=== PATIENT | male | born 1960 | race African-American/Black ===

== ENCOUNTER 2021-05-24 15:41 | Inpatient (IN) | payer OTHER ==
[2021-05-24 17:03] VITALS: BMI 24.4
[2021-05-24] MEDS ORDERED: guaiFENesin 200 MG/10 ML 10 ML UNIT-DOSE CUPS PO PRN (20:52)
[2021-05-24] MEDS ORDERED: MAGNESIUM HYDROX 2400MG/30ML ORAL SUSPENSION 30 ML CUP PO PRN (20:52)
[2021-05-24] MEDS ORDERED: MAGNESIUM CITRATE 300 ML BOTTLE PO PRN (20:52)
[2021-05-24] MEDS ORDERED: LOPERAMIDE HCL 2 MG CAPSULE PO PRN (20:52)
[2021-05-24] MEDS ORDERED: IBUPROFEN 400 MG TABLET (FP) PO PRN (20:52)
[2021-05-24] MEDS ORDERED: P-EPHED 60MG/TRIPROLIDI 2.5MG TABLET PO PRN (20:52)
[2021-05-24] MEDS ORDERED: TUBERCULIN PPD 5 TU/0.1ML VIAL ID ONE (21:54)
[2021-05-24] MEDS: THIAMINE HCL 100 MG TABLET (FP) PO SCH (21:58)
[2021-05-24] MEDS: MELATONIN 5 MG TABLETS PO SCH (21:59)
[2021-05-24] MEDS: hydrOXYzine PAMOATE 25 MG CAPSULE (FP) PO SCH (21:59)
[2021-05-24] MEDS: MAG HYDROX/AL HYDROX/SIMETH 30 ML UNIT-DOSE CUP PO PRN (22:29)
[2021-05-25] MEDS: hydrOXYzine PAMOATE 25 MG CAPSULE (FP) PO SCH ×5 (06:44→21:26)
[2021-05-25] MEDS: PRENATAL VITAMINS W/ FOLIC ACID TABLET (FP) PO SCH (10:04)
[2021-05-25] MEDS: ACETAMINOPHEN 325 MG TABLET (FP) PO PRN (10:06)
[2021-05-25] MEDS: MAG HYDROX/AL HYDROX/SIMETH 30 ML UNIT-DOSE CUP PO PRN (10:08)
[2021-05-25 10:12] LABS: HEMATOCRIT 38.2 % (35.4-49); HEMOGLOBIN 12.9 GM/dL (11.7-16.9); MCH 31.4 pg (25.7-33.7); MCHC 33.7 g/dl (32.0-35.9); MEAN CELL VOLUME 93.3 fl (80-96); MEAN PLT VOLUME 9.3 fl (7.5-11.1); PLATELET COUNT 163 10^3/uL (134-434); RBC 4.09 M/mm3 (4.00-5.60); RDW 14.9 % (11.9-15.9); WHITE BLOOD COUNT 6.2 K/mm3 (4.0-10.0)
[2021-05-25 10:46] LABS: ALBUMIN 3.3 g/dl (3.4-5.0); BLOOD UREA NITROGEN 17.5 mg/dL (7-18); CALCIUM 8.5 mg/dL (8.5-10.1)
[2021-05-25 10:51] LABS: TOT PROT 6.5 g/dl (6.4-8.2)
[2021-05-25 10:54] LABS: BILIRUBIN,TOTAL 0.4 mg/dL (0.2-1)
[2021-05-25 11:16] LABS: SYPHILIS W/ RPR CONF NON-REACTIVE (NONREACTIVE)
[2021-05-25] MEDS ORDERED: FLU VACC QS2021-22(6MOS UP)/PF 60 MCG/0.5 ML SYRINGE IM ONE (13:00)
[2021-05-25 13:29] LABS: HIV INTERPRETATION NEGATIVE (NEGATIVE)
[2021-05-25] MEDS ORDERED: FAMOTIDINE 20 MG TABLET PO ONE (17:07)
[2021-05-25] MEDS: LISINOPRIL 10 MG TABLET PO SCH (18:14)
[2021-05-25] MEDS: NICOTINE 10 MG CARTRIDGE (INHALER) IH SCH (21:25)
[2021-05-25] MEDS: CARVEDILOL 6.25 MG TABLET (FP) PO SCH (21:25)
[2021-05-25] MEDS: THIAMINE HCL 100 MG TABLET (FP) PO SCH (21:25)
[2021-05-25] MEDS: APIXABAN 5 MG TABLET PO SCH (21:25)
[2021-05-25] MEDS: ATORVASTATIN CA 10 MG TABLET (FP) PO SCH (21:26)
[2021-05-25] MEDS: MELATONIN 5 MG TABLETS PO SCH (21:26)
[2021-05-25] MEDS: TOPIRAMATE 100 MG TABLET PO SCH (22:10)
[2021-05-26] MEDS: hydrOXYzine PAMOATE 25 MG CAPSULE (FP) PO SCH ×6 (06:30→21:05)
[2021-05-26] MEDS: APIXABAN 5 MG TABLET PO SCH ×2 (10:13→21:04)
[2021-05-26] MEDS: amLODIPine BESYLATE 10 MG TABLET (FP) PO SCH (10:13)
[2021-05-26] MEDS: LISINOPRIL 10 MG TABLET PO SCH (10:13)
[2021-05-26] MEDS: FAMOTIDINE 20 MG TABLET PO SCH (10:13)
[2021-05-26] MEDS: PRENATAL VITAMINS W/ FOLIC ACID TABLET (FP) PO SCH (10:13)
[2021-05-26] MEDS: CARVEDILOL 6.25 MG TABLET (FP) PO SCH ×2 (10:13→21:04)
[2021-05-26] MEDS: NICOTINE 10 MG CARTRIDGE (INHALER) IH SCH (10:14)
[2021-05-26] MEDS: TOPIRAMATE 100 MG TABLET PO SCH ×2 (11:14→21:03)
[2021-05-26] MEDS: ATORVASTATIN CA 10 MG TABLET (FP) PO SCH (21:04)
[2021-05-26] MEDS: MELATONIN 5 MG TABLETS PO SCH (21:04)
[2021-05-26] MEDS: THIAMINE HCL 100 MG TABLET (FP) PO SCH (21:04)
[2021-05-26] MEDS: MAG HYDROX/AL HYDROX/SIMETH 30 ML UNIT-DOSE CUP PO PRN (22:25)
[2021-05-27] MEDS: hydrOXYzine PAMOATE 25 MG CAPSULE (FP) PO SCH ×5 (06:46→21:19)
[2021-05-27] MEDS: FAMOTIDINE 20 MG TABLET PO SCH (09:10)
[2021-05-27] MEDS: PRENATAL VITAMINS W/ FOLIC ACID TABLET (FP) PO SCH (09:10)
[2021-05-27] MEDS: TOPIRAMATE 100 MG TABLET PO SCH ×2 (09:10→21:19)
[2021-05-27] MEDS: amLODIPine BESYLATE 10 MG TABLET (FP) PO SCH (09:10)
[2021-05-27] MEDS: APIXABAN 5 MG TABLET PO SCH ×2 (09:10→21:19)
[2021-05-27] MEDS: LISINOPRIL 10 MG TABLET PO SCH (09:10)
[2021-05-27] MEDS: NICOTINE 10 MG CARTRIDGE (INHALER) IH SCH (09:10)
[2021-05-27] MEDS: CARVEDILOL 6.25 MG TABLET (FP) PO SCH ×2 (09:10→21:19)
[2021-05-27] MEDS: MAG HYDROX/AL HYDROX/SIMETH 30 ML UNIT-DOSE CUP PO PRN ×2 (10:16→23:40)
[2021-05-27] MEDS: ACETAMINOPHEN 325 MG TABLET (FP) PO PRN (13:38)
[2021-05-27] MEDS: ATORVASTATIN CA 10 MG TABLET (FP) PO SCH (21:19)
[2021-05-27] MEDS: MELATONIN 5 MG TABLETS PO SCH (21:19)
[2021-05-27] MEDS: THIAMINE HCL 100 MG TABLET (FP) PO SCH (21:19)
[2021-05-28] MEDS: hydrOXYzine PAMOATE 25 MG CAPSULE (FP) PO SCH ×5 (06:37→21:05)
[2021-05-28] MEDS: FAMOTIDINE 20 MG TABLET PO SCH (10:01)
[2021-05-28] MEDS: amLODIPine BESYLATE 10 MG TABLET (FP) PO SCH (10:01)
[2021-05-28] MEDS: LISINOPRIL 10 MG TABLET PO SCH (10:01)
[2021-05-28] MEDS: TOPIRAMATE 100 MG TABLET PO SCH ×2 (10:01→21:04)
[2021-05-28] MEDS: PRENATAL VITAMINS W/ FOLIC ACID TABLET (FP) PO SCH (10:01)
[2021-05-28] MEDS: CARVEDILOL 6.25 MG TABLET (FP) PO SCH ×2 (10:01→21:04)
[2021-05-28] MEDS: APIXABAN 5 MG TABLET PO SCH ×2 (10:01→21:04)
[2021-05-28] MEDS: NICOTINE 10 MG CARTRIDGE (INHALER) IH SCH (10:01)
[2021-05-28] MEDS: MAG HYDROX/AL HYDROX/SIMETH 30 ML UNIT-DOSE CUP PO PRN ×2 (17:05→23:40)
[2021-05-28] MEDS ORDERED: PT OWN MED DRAWER 7, Y5N ONE (18:38)
[2021-05-28] MEDS: ATORVASTATIN CA 10 MG TABLET (FP) PO SCH (21:04)
[2021-05-28] MEDS: MELATONIN 5 MG TABLETS PO SCH (21:04)
[2021-05-28] MEDS: THIAMINE HCL 100 MG TABLET (FP) PO SCH (21:04)
[2021-05-29] MEDS: hydrOXYzine PAMOATE 25 MG CAPSULE (FP) PO SCH ×5 (06:48→21:02)
[2021-05-29] MEDS: MAG HYDROX/AL HYDROX/SIMETH 30 ML UNIT-DOSE CUP PO PRN ×2 (09:46→19:09)
[2021-05-29] MEDS: APIXABAN 5 MG TABLET PO SCH ×2 (10:23→21:01)
[2021-05-29] MEDS: PRENATAL VITAMINS W/ FOLIC ACID TABLET (FP) PO SCH (10:23)
[2021-05-29] MEDS: CARVEDILOL 6.25 MG TABLET (FP) PO SCH ×2 (10:23→21:00)
[2021-05-29] MEDS: FAMOTIDINE 20 MG TABLET PO SCH (10:23)
[2021-05-29] MEDS: TOPIRAMATE 100 MG TABLET PO SCH ×2 (10:24→22:11)
[2021-05-29] MEDS: NICOTINE 10 MG CARTRIDGE (INHALER) IH SCH (10:24)
[2021-05-29] MEDS: THIAMINE HCL 100 MG TABLET (FP) PO SCH (21:01)
[2021-05-29] MEDS: ATORVASTATIN CA 10 MG TABLET (FP) PO SCH (21:01)
[2021-05-29] MEDS: MELATONIN 5 MG TABLETS PO SCH (21:01)
[2021-05-29] MEDS: ACETAMINOPHEN 325 MG TABLET (FP) PO PRN (21:02)
[2021-05-30] MEDS: hydrOXYzine PAMOATE 25 MG CAPSULE (FP) PO SCH ×5 (06:46→21:05)
[2021-05-30] MEDS: LISINOPRIL 10 MG TABLET PO SCH ×2 (06:46→06:47)
[2021-05-30] MEDS: amLODIPine BESYLATE 10 MG TABLET (FP) PO SCH (06:46)
[2021-05-30] MEDS: PRENATAL VITAMINS W/ FOLIC ACID TABLET (FP) PO SCH (10:11)
[2021-05-30] MEDS: TOPIRAMATE 100 MG TABLET PO SCH ×2 (10:11→21:04)
[2021-05-30] MEDS: APIXABAN 5 MG TABLET PO SCH ×2 (10:11→21:04)
[2021-05-30] MEDS: FAMOTIDINE 20 MG TABLET PO SCH ×3 (10:11→21:04)
[2021-05-30] MEDS: CARVEDILOL 6.25 MG TABLET (FP) PO SCH ×2 (10:12→21:04)
[2021-05-30] MEDS: NICOTINE 10 MG CARTRIDGE (INHALER) IH SCH (10:12)
[2021-05-30] MEDS: ACETAMINOPHEN 325 MG TABLET (FP) PO PRN ×2 (13:25→19:03)
[2021-05-30] MEDS ORDERED: PANTOPRAZOLE 20 MG TABLET PO ONE (16:08)
[2021-05-30] MEDS: ATORVASTATIN CA 10 MG TABLET (FP) PO SCH (21:04)
[2021-05-30] MEDS: THIAMINE HCL 100 MG TABLET (FP) PO SCH (21:05)
[2021-05-30] MEDS: MELATONIN 5 MG TABLETS PO SCH (21:05)
[2021-05-30] MEDS: TOLNAFTATE 1% CREAM 15 GM TUBE TP SCH (21:26)
[2021-05-31] MEDS: hydrOXYzine PAMOATE 25 MG CAPSULE (FP) PO SCH (07:12)
[2021-05-31] MEDS: LISINOPRIL 10 MG TABLET PO SCH (07:12)
[2021-05-31] MEDS: amLODIPine BESYLATE 10 MG TABLET (FP) PO SCH (07:12)
[2021-05-31] MEDS: APIXABAN 5 MG TABLET PO SCH ×2 (10:40→21:18)
[2021-05-31] MEDS: TOPIRAMATE 100 MG TABLET PO SCH ×2 (10:40→21:17)
[2021-05-31] MEDS: FAMOTIDINE 20 MG TABLET PO SCH ×2 (10:40→21:17)
[2021-05-31] MEDS: PRENATAL VITAMINS W/ FOLIC ACID TABLET (FP) PO SCH (10:40)
[2021-05-31] MEDS: TOLNAFTATE 1% CREAM 15 GM TUBE TP SCH ×2 (10:40→21:18)
[2021-05-31] MEDS: NICOTINE 10 MG CARTRIDGE (INHALER) IH SCH (10:40)
[2021-05-31] MEDS: CARVEDILOL 6.25 MG TABLET (FP) PO SCH ×2 (10:41→21:17)
[2021-05-31] MEDS ORDERED: TOLNAFTATE 1% POWDER 45 GM POW TP SCH (11:30)
[2021-05-31] MEDS: NYSTATIN POWDER 100,000 UNITS/GM - 15 GM TOPICAL POWDER TP SCH ×2 (13:58→21:18)
[2021-05-31] MEDS: MAG HYDROX/AL HYDROX/SIMETH 30 ML UNIT-DOSE CUP PO PRN (16:54)
[2021-05-31] MEDS: THIAMINE HCL 100 MG TABLET (FP) PO SCH (21:17)
[2021-05-31] MEDS: MELATONIN 5 MG TABLETS PO SCH (21:17)
[2021-05-31] MEDS: ATORVASTATIN CA 10 MG TABLET (FP) PO SCH (21:18)
[2021-06-01] MEDS: LISINOPRIL 10 MG TABLET PO SCH (06:01)
[2021-06-01] MEDS: amLODIPine BESYLATE 10 MG TABLET (FP) PO SCH (06:01)
[2021-06-01] MEDS: hydrOXYzine PAMOATE 25 MG CAPSULE (FP) PO PRN (10:06)
[2021-06-01] MEDS: APIXABAN 5 MG TABLET PO SCH ×2 (10:06→21:03)
[2021-06-01] MEDS: FAMOTIDINE 20 MG TABLET PO SCH ×2 (10:06→21:03)
[2021-06-01] MEDS: PRENATAL VITAMINS W/ FOLIC ACID TABLET (FP) PO SCH (10:06)
[2021-06-01] MEDS: TOPIRAMATE 100 MG TABLET PO SCH ×2 (10:06→21:04)
[2021-06-01] MEDS: NYSTATIN POWDER 100,000 UNITS/GM - 15 GM TOPICAL POWDER TP SCH ×2 (10:06→21:05)
[2021-06-01] MEDS: CARVEDILOL 6.25 MG TABLET (FP) PO SCH ×2 (10:06→21:03)
[2021-06-01] MEDS: NICOTINE 10 MG CARTRIDGE (INHALER) IH SCH (10:07)
[2021-06-01] MEDS: TOLNAFTATE 1% CREAM 15 GM TUBE TP SCH ×2 (10:08→21:05)
[2021-06-01] MEDS ORDERED: LIDOCAINE 5% TOPICAL PATCH ONE (13:34)
[2021-06-01] MEDS: LIDOCAINE 5% TOPICAL PATCH TP SCH (13:35)
[2021-06-01] MEDS: MAG HYDROX/AL HYDROX/SIMETH 30 ML UNIT-DOSE CUP PO PRN (17:06)
[2021-06-01] MEDS: ATORVASTATIN CA 10 MG TABLET (FP) PO SCH (21:03)
[2021-06-01] MEDS: THIAMINE HCL 100 MG TABLET (FP) PO SCH (21:04)
[2021-06-01] MEDS: MELATONIN 5 MG TABLETS PO SCH (21:04)
[2021-06-01] MEDS: LIDOCAINE PATCH REMOVAL MC SCH (21:05)
[2021-06-02] MEDS: amLODIPine BESYLATE 10 MG TABLET (FP) PO SCH (05:36)
[2021-06-02] MEDS: LISINOPRIL 10 MG TABLET PO SCH (05:37)
[2021-06-02] MEDS: FAMOTIDINE 20 MG TABLET PO SCH (10:18)
[2021-06-02] MEDS: TOLNAFTATE 1% CREAM 15 GM TUBE TP SCH ×2 (10:18→21:15)
[2021-06-02] MEDS: APIXABAN 5 MG TABLET PO SCH ×2 (10:18→21:14)
[2021-06-02] MEDS: NYSTATIN POWDER 100,000 UNITS/GM - 15 GM TOPICAL POWDER TP SCH ×2 (10:18→21:15)
[2021-06-02] MEDS: PRENATAL VITAMINS W/ FOLIC ACID TABLET (FP) PO SCH (10:18)
[2021-06-02] MEDS: TOPIRAMATE 100 MG TABLET PO SCH ×2 (10:18→21:14)
[2021-06-02] MEDS: CARVEDILOL 6.25 MG TABLET (FP) PO SCH ×2 (10:18→21:14)
[2021-06-02] MEDS: LIDOCAINE 5% TOPICAL PATCH TP SCH (10:20)
[2021-06-02] MEDS: NICOTINE 10 MG CARTRIDGE (INHALER) IH SCH (10:20)
[2021-06-02] MEDS ORDERED: COLLOIDAL OATMEAL 1 BAR EACH TP PRN (11:23)
[2021-06-02] MEDS ORDERED: PANTOPRAZOLE 40 MG TABLET PO SCH (11:30)
[2021-06-02] MEDS: MAG HYDROX/AL HYDROX/SIMETH 30 ML UNIT-DOSE CUP PO PRN ×2 (14:38→21:15)
[2021-06-02] MEDS: THIAMINE HCL 100 MG TABLET (FP) PO SCH (21:14)
[2021-06-02] MEDS: MELATONIN 5 MG TABLETS PO SCH (21:14)
[2021-06-02] MEDS: ATORVASTATIN CA 10 MG TABLET (FP) PO SCH (21:14)
[2021-06-02] MEDS: LIDOCAINE PATCH REMOVAL MC SCH (21:15)
[2021-06-03] MEDS: amLODIPine BESYLATE 10 MG TABLET (FP) PO SCH (06:13)
[2021-06-03] MEDS: LISINOPRIL 10 MG TABLET PO SCH (06:13)
[2021-06-03] MEDS: PRENATAL VITAMINS W/ FOLIC ACID TABLET (FP) PO SCH (09:58)
[2021-06-03] MEDS: APIXABAN 5 MG TABLET PO SCH ×2 (09:58→21:09)
[2021-06-03] MEDS: TOPIRAMATE 100 MG TABLET PO SCH ×2 (09:58→21:10)
[2021-06-03] MEDS: PANTOPRAZOLE 40 MG TABLET PO SCH (09:58)
[2021-06-03] MEDS: NYSTATIN POWDER 100,000 UNITS/GM - 15 GM TOPICAL POWDER TP SCH ×2 (09:58→21:55)
[2021-06-03] MEDS: LIDOCAINE 5% TOPICAL PATCH TP SCH (09:59)
[2021-06-03] MEDS: NICOTINE 10 MG CARTRIDGE (INHALER) IH SCH (09:59)
[2021-06-03] MEDS: TOLNAFTATE 1% CREAM 15 GM TUBE TP SCH ×2 (09:59→21:55)
[2021-06-03] MEDS: CARVEDILOL 6.25 MG TABLET (FP) PO SCH ×2 (09:59→21:10)
[2021-06-03] MEDS: MAG HYDROX/AL HYDROX/SIMETH 30 ML UNIT-DOSE CUP PO PRN ×2 (15:31→21:13)
[2021-06-03] MEDS: ATORVASTATIN CA 10 MG TABLET (FP) PO SCH (21:10)
[2021-06-03] MEDS: THIAMINE HCL 100 MG TABLET (FP) PO SCH (21:10)
[2021-06-03] MEDS: LIDOCAINE PATCH REMOVAL MC SCH (21:10)
[2021-06-03] MEDS: MELATONIN 5 MG TABLETS PO SCH (21:55)
[2021-06-04] MEDS: LISINOPRIL 10 MG TABLET PO SCH (06:20)
[2021-06-04] MEDS: amLODIPine BESYLATE 10 MG TABLET (FP) PO SCH (06:20)
[2021-06-04] MEDS: MAG HYDROX/AL HYDROX/SIMETH 30 ML UNIT-DOSE CUP PO PRN (06:21)
[2021-06-04] MEDS: NYSTATIN POWDER 100,000 UNITS/GM - 15 GM TOPICAL POWDER TP SCH ×2 (10:18→21:26)
[2021-06-04] MEDS: PRENATAL VITAMINS W/ FOLIC ACID TABLET (FP) PO SCH (10:18)
[2021-06-04] MEDS: TOPIRAMATE 100 MG TABLET PO SCH ×2 (10:19→21:26)
[2021-06-04] MEDS: hydrOXYzine PAMOATE 25 MG CAPSULE (FP) PO PRN (10:19)
[2021-06-04] MEDS: CARVEDILOL 6.25 MG TABLET (FP) PO SCH ×2 (10:19→21:26)
[2021-06-04] MEDS: PANTOPRAZOLE 40 MG TABLET PO SCH (10:19)
[2021-06-04] MEDS: NICOTINE 10 MG CARTRIDGE (INHALER) IH SCH (10:19)
[2021-06-04] MEDS: APIXABAN 5 MG TABLET PO SCH ×2 (10:19→21:26)
[2021-06-04] MEDS: LIDOCAINE 5% TOPICAL PATCH TP SCH (10:19)
[2021-06-04] MEDS: TOLNAFTATE 1% CREAM 15 GM TUBE TP SCH ×2 (10:20→21:26)
[2021-06-04] MEDS: LIDOCAINE PATCH REMOVAL MC SCH (21:26)
[2021-06-04] MEDS: ATORVASTATIN CA 10 MG TABLET (FP) PO SCH (21:26)
[2021-06-04] MEDS: THIAMINE HCL 100 MG TABLET (FP) PO SCH (21:26)
[2021-06-04] MEDS: MELATONIN 5 MG TABLETS PO SCH (21:26)
[2021-06-04] MEDS: ACETAMINOPHEN 325 MG TABLET (FP) PO PRN (21:28)
[2021-06-05] MEDS: amLODIPine BESYLATE 10 MG TABLET (FP) PO SCH (06:33)
[2021-06-05] MEDS: LISINOPRIL 10 MG TABLET PO SCH (06:33)
[2021-06-05] MEDS: PRENATAL VITAMINS W/ FOLIC ACID TABLET (FP) PO SCH (10:05)
[2021-06-05] MEDS: TOLNAFTATE 1% CREAM 15 GM TUBE TP SCH ×2 (10:06→21:16)
[2021-06-05] MEDS: APIXABAN 5 MG TABLET PO SCH ×2 (10:06→21:15)
[2021-06-05] MEDS: TOPIRAMATE 100 MG TABLET PO SCH ×2 (10:06→21:15)
[2021-06-05] MEDS: CARVEDILOL 6.25 MG TABLET (FP) PO SCH ×2 (10:06→21:15)
[2021-06-05] MEDS: NYSTATIN POWDER 100,000 UNITS/GM - 15 GM TOPICAL POWDER TP SCH (10:06)
[2021-06-05] MEDS: LIDOCAINE 5% TOPICAL PATCH TP SCH (10:06)
[2021-06-05] MEDS: NICOTINE 10 MG CARTRIDGE (INHALER) IH SCH (10:06)
[2021-06-05] MEDS: PANTOPRAZOLE 40 MG TABLET PO SCH (10:07)
[2021-06-05] MEDS: CLINDAMYCIN PHOSPHATE 1% TOPICAL SOLUTION 30 ML BOTTLE TP SCH ×2 (14:33→21:16)
[2021-06-05] MEDS: CLOTRIMAZOLE/BETAMET DIPROP TOPICAL CREAM 45 GM TUBE TP SCH ×2 (14:33→21:16)
[2021-06-05] MEDS ORDERED: PT OWN MED DRAWER 7, Y5N ONE (18:58)
[2021-06-05] MEDS: THIAMINE HCL 100 MG TABLET (FP) PO SCH (21:15)
[2021-06-05] MEDS: MELATONIN 5 MG TABLETS PO SCH (21:15)
[2021-06-05] MEDS: ATORVASTATIN CA 10 MG TABLET (FP) PO SCH (21:15)
[2021-06-05] MEDS: MAG HYDROX/AL HYDROX/SIMETH 30 ML UNIT-DOSE CUP PO PRN (21:16)
[2021-06-05] MEDS: LIDOCAINE PATCH REMOVAL MC SCH (21:16)
[2021-06-06] MEDS: amLODIPine BESYLATE 10 MG TABLET (FP) PO SCH (06:31)
[2021-06-06] MEDS: MAG HYDROX/AL HYDROX/SIMETH 30 ML UNIT-DOSE CUP PO PRN (06:32)
[2021-06-06] MEDS: LISINOPRIL 10 MG TABLET PO SCH (07:22)
[2021-06-06] MEDS: CLOTRIMAZOLE/BETAMET DIPROP TOPICAL CREAM 45 GM TUBE TP SCH ×2 (10:59→21:22)
[2021-06-06] MEDS: PANTOPRAZOLE 40 MG TABLET PO SCH (11:00)
[2021-06-06] MEDS: CLINDAMYCIN PHOSPHATE 1% TOPICAL SOLUTION 30 ML BOTTLE TP SCH ×2 (11:00→21:22)
[2021-06-06] MEDS: APIXABAN 5 MG TABLET PO SCH ×2 (11:00→21:21)
[2021-06-06] MEDS: NICOTINE 10 MG CARTRIDGE (INHALER) IH SCH (11:01)
[2021-06-06] MEDS: TOPIRAMATE 100 MG TABLET PO SCH ×2 (11:01→21:21)
[2021-06-06] MEDS: PRENATAL VITAMINS W/ FOLIC ACID TABLET (FP) PO SCH (11:01)
[2021-06-06] MEDS: CARVEDILOL 6.25 MG TABLET (FP) PO SCH ×2 (11:01→21:21)
[2021-06-06] MEDS: LIDOCAINE 5% TOPICAL PATCH TP SCH (11:03)
[2021-06-06] MEDS: TOLNAFTATE 1% CREAM 15 GM TUBE TP SCH ×2 (11:04→21:22)
[2021-06-06] MEDS: PANTOPRAZOLE 20 MG TABLET PO SCH ×2 (11:04→21:21)
[2021-06-06] MEDS ORDERED: PT OWN MED DRAWER 7, Y5N ONE (14:04)
[2021-06-06] MEDS: ACETAMINOPHEN 325 MG TABLET (FP) PO PRN (18:15)
[2021-06-06] MEDS: THIAMINE HCL 100 MG TABLET (FP) PO SCH (21:20)
[2021-06-06] MEDS: MELATONIN 5 MG TABLETS PO SCH (21:20)
[2021-06-06] MEDS: ATORVASTATIN CA 10 MG TABLET (FP) PO SCH (21:21)
[2021-06-06] MEDS: LIDOCAINE PATCH REMOVAL MC SCH (21:22)
[2021-06-06] MEDS ORDERED: PANTOPRAZOLE 40 MG TABLET PO SCH (22:00)
[2021-06-07] MEDS: LISINOPRIL 10 MG TABLET PO SCH (06:47)
[2021-06-07] MEDS: amLODIPine BESYLATE 10 MG TABLET (FP) PO SCH (06:53)
[2021-06-07 07:03] VITALS: BP 143/86; PULSE 70; TEMP 98.2
[2021-06-07] MEDS: PANTOPRAZOLE 20 MG TABLET PO SCH (09:06)
[2021-06-07] MEDS: PRENATAL VITAMINS W/ FOLIC ACID TABLET (FP) PO SCH (09:06)
[2021-06-07] MEDS: APIXABAN 5 MG TABLET PO SCH (09:06)
[2021-06-07] MEDS: CLOTRIMAZOLE/BETAMET DIPROP TOPICAL CREAM 45 GM TUBE TP SCH (09:06)
[2021-06-07] MEDS: NICOTINE 10 MG CARTRIDGE (INHALER) IH SCH (09:06)
[2021-06-07] MEDS: CARVEDILOL 6.25 MG TABLET (FP) PO SCH (09:06)
[2021-06-07] MEDS: CLINDAMYCIN PHOSPHATE 1% TOPICAL SOLUTION 30 ML BOTTLE TP SCH (09:07)
[2021-06-07] MEDS: TOLNAFTATE 1% CREAM 15 GM TUBE TP SCH (09:07)
[2021-06-07] MEDS: LIDOCAINE 5% TOPICAL PATCH TP SCH (09:07)
[2021-06-07] MEDS ORDERED: PT OWN MED DRAWER 7, Y5N ONE (09:08)
[2021-06-07] MEDS: TOPIRAMATE 100 MG TABLET PO SCH (09:08)
== END 2021-06-07 09:51 | disposition home or self-care (01) | DRG 772 ==
LOC: YASAS 15:41 → Y3W 21:06
PROVIDERS: ADMIT Allergy & Immunology; ATTEND Allergy & Immunology
PROC: HZ42ZZZ Group Counseling for Substance Abuse Treatment, Cognitive-Behavioral (ICD-10-PCS; principal; 2021-05-24)
DX: F14.20 Cocaine dependence, uncomplicated (principal); F17.210 Nicotine dependence, cigarettes, uncomplicated; I73.9 Peripheral vascular disease, unspecified; I10 Essential (primary) hypertension; K21.9 Gastro-esophageal reflux disease without esophagitis; L85.3 Xerosis cutis; B35.6 Tinea cruris; L70.9 Acne, unspecified; R12 Heartburn; R56.9 Unspecified convulsions
CPT/HCPCS: 36415; 80053; 82962; 85027; 86780; 86803; 87389; 87522; 87811; C9803; U0003; U0005